=== PATIENT | male | born 1960 | race Hispanic/Latino ===

== ENCOUNTER 2024-11-04 20:05 | Emergency (ER) | payer BC, OTHER ==
[~2024-11-04] VITALS: Ht 167.6 cm; Wt 90.7 kg
[2024-11-04] MEDS: HYDROcodone/APAP 5/325 1 TAB TABLET PO STA (20:27)
[2024-11-04] MEDS: ketOROlac 15MG/ML VIAL (15MG/ML) IM STA (20:28)
[2024-11-04] MEDS: ORPHENADRINE 60MG/2ML IM STA (20:28)
[2024-11-04] MEDS ORDERED: METH-811 PO (21:13)
--- NOTE | 2024-11-04 21:14 | ERN ---
ED Note History of Present Illness Stated Complaint: PAIN ON RIGHT THIGH Chief Complaint: Lower Extremity Pain/Injury Time Seen by MD: 20:11 Time Seen by Midlevel: 20:15 Dictation: 64-year-old male coming in with complaints of pain to the right lower buttocks that radiates to the calf. Patient states this has been going on for one week. States this all started because he was walking and stepped wrong. Denies any numbness, tingling, unilateral weakness, saddle paresthesias or incontinence. Allergies: Coded Allergies: No Known Allergies (Unverified Allergy, Unknown, 11/04/24) Past Medical History Past Medical History: Diabetes-Type II, Hypertension Surgical History: None Review of System Dictation Constitutional: Negative for fever,chills, and weight loss Eyes: Negative for injury, pain,redness, and discharge ENT: Negative for injury,pain or swelling Cardiovascular: Negative for chest pain, palpitations, and edema Respiratory: Negative for shortness of breath, cough, and wheezing, Abdomen/GI: Negative for abdominal pain, nausea, vomiting, diarrhea, and constipation Back: Negative for injury and pain, complaining of right lower glute pain radiating to the right leg : Negative for injury, bleeding and discharge MS/Extremity: Negative for injury and deformity Skin: Negative for rash, and discoloration,, complaining of right lower glute pain radiating to the right leg Neuro: Negative for headache, weakness, numbness, tingling, and seizure Psych: Negative for suicide ideation, homicidal ideation, and hallucinations Review of Systems: was completed Initial Vital Sign VS Vital Signs Date Time Temp Pulse Resp B/P (MAP) Pulse Ox O2 Delivery O2 Flow Rate FiO2 11/04/24 20:05 97.5 65 18 163/77 98 Room Air 11/04/24 20:16 0 21 Physical Exam Dictation General: awake, alert, NAD Head/Face: Normocephalic, atraumatic Eyes: PERRL, EOMI, vision at baseline ENT: oral cavity clear, TMs clear, no signs of infection Neck: Trachea midline, supple, no nuchal rigidity Cardiovascular: RRR, normal S1/S2, No MRGs, no JVD Respiratory: CTAB, no respiratory distress, No rales or wheezes Abdomen: Soft, non-tender, non-distended, normal bowel sounds, no guarding or rebound. Skin: Warm, dry, normal turgor, no rash MS/Extremity: Pulses equal, no cyanosis, neurovascular intact, FROM Neuro: COAx4, GCS 15, strength 5/5, CN 2-12 intact, normal cerebellar exam, normal gait, Psych: Normal behavior, mood, and affect normal ED Course ED Course Orders Procedure Category Date Status Time Hydrocodone/Apap PHA 11/04/24 Complete 5/325 ([place] 5/325mg) 20:16 Orphenadrine Citrate PHA 11/04/24 Complete (Norflex) 20:16 Ketorolac PHA 11/04/24 Complete Tromethamine 15mg/Ml 20:16 Current Medications Medications (Trade) Dose Ordered Sig/Ludin Route PRN Reason Start Time Stop Time Status Last Admin Dose Admin Acetaminophen/ Hydrocodone Bitart (NORco 5/325MG) 1 tab ONCE STAT PO 11/04/24 20:16 11/04/24 20:19 DC 11/04/24 20:27 Ketorolac Tromethamine (toRADol) 15 mg ONCE STAT IM 11/04/24 20:16 11/04/24 20:19 DC 11/04/24 20:28 Orphenadrine Citrate (Norflex) 60 mg ONCE STAT IM 11/04/24 20:16 11/04/24 20:19 DC 11/04/24 20:28 Vital Signs Date Time Temp Pulse Resp B/P (MAP) Pulse Ox O2 Delivery O2 Flow Rate FiO2 11/04/24 20:16 97.5 62 18 154/68 99 Room Air* 0 21 11/04/24 20:05 97.5 65 18 163/77 98 Room Air Medical Decision Making MDM MDM:64-year-old male coming in with complaints of pain to the right lower buttocks that radiates to the calf. Patient states this has been going on for one week. States this all started because he was walking and stepped wrong. Denies any numbness, tingling, unilateral weakness, saddle paresthesias or incontinence. After pain medication patient feels better. Discussed with the p atient's more likely nerve related like sciatica. Educated she needs to follow up with PCP return to the hospital if anything worsens. Discussed with the patient and will prescribe muscle relaxers in turning needs to take Tylenol or Motrin [id number]. Patient verbalized understanding, answered all questions. Differential diagnosis: Muscle strain, sciatica, muscle spasm Rationale: Tests considered and ordered secondary to shared decision making include: Previous outside records reviewed: Old ER visits. Risk of complication and/or morbidity or mortality of patient management: None Medications-Per medication reconciliation Need for hospitalization: Patient does not meet criteria for hospitalization. Need for emergency major/minor surgery: No There are no social concerns with this patient. Prescription drug management Prescriptions will include symptomatic care Patient's prior external medical records from other ER visits were reviewed by me as indicated. Prior testing and results from previous visits were reviewed. Prior tests were taken into account with medical decision making and resource utilization, independent historian/historians were used to obtain complete medical history. I independently interpreted the test that were performed, results were reviewed by me and considered findings on radiology if ordered. Medical management and examination interpretation discussions were had by me with other qualified healthcare professionals as indicated for the patient's care. DX & DISP Disposition: Discharge Departure Impression: Primary Impression: Sciatic leg pain Condition: Stable Scripts Methocarbamol (Methocarbamol) 500 Mg Tablet 1 TAB PO TID for 30 Days, #90 TAB 0 Refills Prov: NICKO SHELLEY NP 11/04/24 Additional Instructions: You can take Tylenol and Motrin [id number] along with the medications that I prescribed. Follow up with your PCP in 1-2 days, return to the hospital if you develop any incontinence, numbness tingling to one extremity. Referrals: CHERISE FINN MD (PCP) Time of Disposition: 21:12 I have reviewed the case, and I agree with, Diagnosis and Plan NICKO SHELLEY NP Nov 04, 2024 21:14
[2024-11-04 21:26] VITALS: BP 132/60; PULSE 68; RESP 18; TEMP 97.5; O2SAT 98
== END 2024-11-04 21:27 | disposition home or self-care (01) ==
LOC: EDH 20:23
DX: M54.31 Sciatica, right side (principal); E11.9 Type 2 diabetes mellitus without complications; I10 Essential (primary) hypertension
CPT/HCPCS: 99284; 96372 ×2; J1885; J2360

== ENCOUNTER 2024-12-16 15:49 | Emergency (ER) | payer BC ==
[~2024-12-16] VITALS: Ht 167.6 cm; Wt 99.8 kg
[~2024-12-16 15:49] MED LIST: METH-811 PO
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
[2024-12-16] MEDS: HYDROcodone/APAP 5/325 1 TAB TABLET PO ONE (16:52)
[2024-12-16] MEDS: CYCLOBENZAPRINE HCL 10 MG TABLET PO ONE (16:52)
[2024-12-16 17:00] VITALS: BP 160/75; PULSE 75; RESP 16; TEMP 98; O2SAT 98
[2024-12-16] MEDS ORDERED: CYCL-309 PO (17:21)
[2024-12-16] MEDS ORDERED: IBUP-2077 PO (17:21)
[2024-12-16] MEDS ORDERED: OMEP40CA21 PO (17:21)
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
== END 2024-12-16 17:30 | disposition home or self-care (01) ==
LOC: EDH 15:49
DX: M54.41 Lumbago with sciatica, right side (principal); E11.9 Type 2 diabetes mellitus without complications; I10 Essential (primary) hypertension
CPT/HCPCS: 99284; 72100; 96372 ×2; J1885; J1100